=== PATIENT | male | born 1995 | race Caucasian/White ===

== ENCOUNTER 2024-01-12 10:20 | Emergency (ER) | payer OTHER, SELFPAY ==
[2024-01-12 10:22] VITALS: BP 147/82
[2024-01-12 11:26] VITALS: BMI 23.6
[2024-01-12 11:31] LABS: % Basophils 0.2 % (0-2); % Eosinophils 0.4 % (0-6); % Immature Granulocytes 0.4 % (0-0.5); % Lymphocytes 20.1 % (20.5-51.1); % Monocytes 8.1 % (1.7-9.3); % Neutrophils 70.8 % (42.2-75.2); Absolute Lymphocytes 1.7 10^3/uL (1.2-3.4); Absolute Monocytes 0.7 10^3/uL (0.1-0.6); Hematocrit 44.1 % (39.0-52.0); Hemoglobin 16.2 g/dL (13.0-18.0); Mean Corp Hgb Conc. 36.7 g/dL (33.0-37.0); Mean Corpuscular Hgb 33.1 pg (27.0-31.0); Mean Platelet Volume 9.6 fL (7.4-10.4); Nucleated Red Blood Cells % 0 % (-); Platelet Count 177 10^3/uL (130-400); Red Cell Dist. Width 11.9 % (11.5-14.5); White Blood Cell Count 8.4 10^3/uL (4.8-10.8)
[2024-01-12] MEDS: BENADRYL 50 MG IV (11:34)
[2024-01-12] MEDS: SOLU-MEDROL PF 125 MG IV (11:35)
[2024-01-12 11:47] LABS: ALT (SGPT) 27 U/L (0-50); AST (SGOT) 24 U/L (17-59); Albumin 4.7 g/dl (3.5-5.0); Alkaline Phosphatase 47 U/L (38-126); Blood Urea Nitrogen 13 mg/dl (9-20); Calcium 9.5 mg/dl (8.4-10.2); Carbon Dioxide 26 mmol/L (22-30); Chloride 103 mmol/L (98-107); Estimated Creatinine Clearance 123 ml/min; Glucose 92 mg/dl (70-99); Potassium 4.5 mmol/L (3.5-5.1); Sodium 140 mmol/L (135-145); Total Bilirubin 0.8 mg/dl (0.2-1.3); Total Protein 7.2 g/dl (6.3-8.2); eGFR > 60.00
--- NOTE | 2024-01-12 11:55 | ED.GENMED ---
History of Present Illness
General
Chief Complaint: Skin Problem
Source: patient
Exam Limitations: none
Time Seen by Provider: 01/12/24 11:01
Nursing documentation reviewed up to this point in time: agreed with
History of Present Illness
History of Present Illness:
28 y/o M
no previous PMH
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
about a month later was in [place] working set up a new distribution center and got hives on his arms, legs, neck
he went to an ER and got iv benadryl and steorids and was sent home with af ew days of prendisone and epi pen
pt says symptoms resolved but then over the past few weeks here and there he has had occasional hives come and go
the past 48 horus he has had giant hives on R thigh first, then forearm/hand, neck,
he has not tried anything other than daily yusuf which he has been taking
he has not had any trouble breathing, pain, fever, osre throat, voice change, wheezing
went to an business solution analyst today and was sent over for treatment and blood work
Past History
Past History
ED Past Medical History: None
ED Past Surgical History: None
Social History
Tobacco: Non-smoker
Alcohol: None
Drug: None
Personal: Single
Living: with family
Employment: Employed
Review of Systems
Review of Systems
Allergies reviewed?: Yes
All Other Systems: Not applicable
Phy Exam
Physical Exam
Physical Exam:
GENERAL: Alert , in no apparent distress
EYE: pupils equal and reactive
NECK: Supple
ENT: o/p clr, mmm.
CARDIAC: Regular rate and rhythm .
LUNGS: Clear breath sounds bilaterally, no acute respiratory distress, no wheezes/rales/rhonchi
ABDOMEN: Soft, without focal tenderness, no r/g, no cvat, normal bowel sounds
NEUROLOGICAL: Alert and oriented, no focal neuro deficits
SKIN: Warm and dry, intact skin
large areas of urticaria
MUSCULOSKELETAL: No edema, well perfused. neg ester's sign
PSYCH: Normal and appropriate interaction.
Course
Orders/Labs/Results
Orders:
Orders
01/12/24 11:16
CBC/With Diff [Complete Blood Count/With Diff] Urgent
CMP [Comprehensive Metabolic Panel] Urgent
Complement Act., Total (CH50) [S] Urgent
Complement C3 Urgent
Complement C4 Urgent
ESR [Erythrocyte Sed Rate] Urgent
Monotest Urgent
Comment: ADD ON
TSH Urgent
01/12/24 11:27
Diphenhydramine [Benadryl] 50 mg IV NOW STA
MethylPREDNISolone PF [Solu-Medrol Pf] 125 mg IV NOW STA
01/12/24 11:47
Add On- LAB Urgent
Tests Added?: mono
01/12/24 11:55
ANCA(Mpo/Pr3) [ANCA - MPO/PR3 Ab Profile] [S] Routine
IgE [S] Routine
Abnormal Lab Results
01/12/24
11:16
MCH 33.1 H pg
(27.0-31.0)
Absolute Monos (auto) 0.7 H 10^3/uL
(0.1-0.6)
Lymphocytes % 20.1 L %
(20.5-51.1)
01/12/24 11:16
01/12/24 11:16
Vital Signs
Initial and Last Documented VS:
Initial Vital Signs
Temp Pulse Resp BP Pulse Ox
97.7 F 80 18 147/82 97
01/12/24 10:22 01/12/24 10:22 01/12/24 10:22 01/12/24 10:22 01/12/24 10:22
Last Documented Vital Signs
Temp Pulse Resp BP Pulse Ox
98.1 F 72 15 126/72 100
01/12/24 12:39 01/12/24 12:39 01/12/24 12:39 01/12/24 12:39 01/12/24 12:39
MDM/Problems Addressed
Differential Diagnosis Includes:
urticaria, allergic reaction, edema; less likely infectious/
ED Attending Note
-
Portions of this chart may have been created with voice recognition software.� Occasional wrong word or��sound alike� substitutions may have occurred due to the inherent limitations of voice recognition software.
Discharge Plan
Departure
Patient Disposition: Home (Routine Discharge)
Date of Disposition: 01/12/24
Time of Disposition: 12:31
Patient with high blood pressure during this ER visit?: No
Condition: Fair
Discharge Problem:
Urticaria
Instructions: Hives
Prescriptions:
New
prednisone 10 mg Tablet
See Rx Instructions .ROUTE .COMPLEX Qty: 30 0RF
Rx Instructions:
Take By Mouth:
40 mg daily x3 days, 30 mg daily x3 days,
20 mg daily x3 days, 10 mg daily x3 days.
Referrals:
Sanjay Stein MD [Family Provider] -
Activity Restrictions/Additional Instructions:
WE ARE NOT SURE THE CAUSE OF YOUR HIVES
YOU WILL NEED TO CONTINUE THE WORK UP WITH YOUR CONSUMER MARKETING MANAGER
IN THE MEANTIME, I BELIEVE WE WERE ABLE TO SEND THE PANEL OF TESTING THAT WAS REQUESTED
YOU MAY NEED TO HAVE THE IgE and the serum ANCA testing BUT WAIT A FEW DAYS FOR THESE TO RESULT AND GET THEM TO YOUR CONSUMER MARKETING MANAGER
THEY WILL NOT BE AUTOMATICALLY FAXED
IN THE MEANTIME BENADRYL 50 MG EVERY 8 HOURS FOR 3-4 DAYS
PRENDISONE TAPER PRESCRIBED STARTING TOMORROW
IF YOU FEEL RAPIDLY WORSE, RETURN TO THE ER OR USE YOUR EPI PEN AND CALL 911
RETURN FOR TROUBLE BREATHING, THROAT SWELLING, TROUBLE SWALLOWING OR ANY CONCENRS.
Interventions
Interventions:
*Risk Screen - Suicide Last Done: 01/12/24 10:22
*General Assessment Last Done: 01/12/24 10:22
*Neglect/Abuse Screening Last Done: 01/12/24 10:22
*Nursing Disposition Last Done: 01/12/24 13:03
ED-Skin Assessment Last Done: 01/12/24 11:26
Discharge Date and Time
Discharge Date/Time: 01/12/24 13:04
Print Language: TAMAZIGHT
[2024-01-12 12:13] LABS: Monotest Negative (Negative)
[2024-01-12 12:18] LABS: TSH 1.75 uIU/ml (0.47-4.68)
[2024-01-12 12:39] VITALS: BP 126/72
[2024-01-12 12:40] LABS: Erythrocyte Sed Rate 8 mm/hour (0-20)
[2024-01-13 21:18] LABS: IgE 194 kU/L (<=214)
[2024-01-13 22:55] LABS: Complement Act., Total (CH50) 83.2 U/mL (38.7-89.9)
[2024-01-14 17:08] LABS: Myeloperoxidase Antibody 0 AU/mL (0-19); Serine Protease-3, IgG 0 AU/mL (0-19)
[2024-01-14 23:03] LABS: Complement C3 100 mg/dl (88-165)
== END 2024-01-12 13:04 | disposition home or self-care (01) ==
LOC: EMR 10:20
PROVIDERS: Physician Assistant; EMERGENCY PHYSICIAN Emergency Medicine; FAMILY PHYSICIAN Family Medicine
DX: L50.9 Urticaria, unspecified (principal)
CPT/HCPCS: 99284; 96374; 96375; 80053; 82785; 83516; 84443; 85025; 85652; 86160; 86162; 86308

== ENCOUNTER 2024-03-02 19:39 | Emergency (ER) | payer OTHER, SELFPAY ==
[2024-03-02 19:40] VITALS: BP 138/80
--- NOTE | 2024-03-02 22:06 | ED.GENMED ---
History of Present Illness
General
Chief Complaint: Allergic Reaction
Source: patient
Exam Limitations: none
Time Seen by Provider: 03/02/24 20:57
Nursing documentation reviewed up to this point in time: agreed with
History of Present Illness
History of Present Illness:
Patient presents to ED secondary to worsening itchy hives starting last night. Since then, hives have expanded and has progressed to left eye swelling and redness. Denies fever or chills. Denies headache. Denies blurred vision. Denies
dizziness. Denies sore throat. Denies throat swelling sensation. Denies chest pain or shortness of breath. Denies nausea, vomiting, or diarrhea. Patient states that he unfortunately has had number of similar symptoms since November of this year.
He has been evaluated by automotive product specialist, with whom he has had number of testing done, without identification etiology behind his symptoms. He had been referred to dermatology for skin biopsy, if it were to occur again. Of note, patient states
that he had tooth extraction earlier in the day, and is unsure if that may have triggered his rash.
Past History
Past History
ED Past Medical History: None
ED Past Surgical History: None
Social History
Tobacco: Non-smoker
Alcohol: None
Drug: None
Personal: Single
Living: with family
Employment: Employed
Review of Systems
Review of Systems
Allergies reviewed?: Yes
All Other Systems: ROS reviewed and negative except as documented in HPI and ROS
Constitutional: Reports no symptoms
EENT: Reports no symptoms; Denies sore throat
Respiratory: Reports no symptoms; Denies trouble breathing
Cardiac: Reports no symptoms
ABD/GI: Reports no symptoms; Denies abdominal pain, nausea or vomiting
: Reports no symptoms
Musculoskeletal: Reports no symptoms
Skin: Reports itching and rash
Neurological: Reports no symptoms
Phy Exam
Physical Exam
Physical Exam:
Physical Exam
General: mild distress, not acutely ill. afebrile
Head: nc/at. mild left periorbital swelling/erythema noted. normal conjunctiva.
Neck: supple. normal range of motion. normal pharynx
Heart: s1/s2 regular rate and rhythm, no murmur. equal radial pulses.
Lungs: no acute respiratory distress. clear bilaterally
Abdomen: normal bowel sounds. not tender.
Neuro: alert and oriented. no focal neurological deficits
Skin: no rash
Psychiatric: well kept. interactive and cooperative
Extremities: no edema. no calf tenderness.
Course
Orders/Labs/Results
Orders:
Orders
03/02/24 22:06
HydrOXYZINE [Atarax] 10 mg PO NOW STA
Prednisone [Deltasone] 50 mg PO NOW STA
Vital Signs
Initial and Last Documented VS:
Initial Vital Signs
Temp Pulse Resp BP Pulse Ox
98.2 F 83 19 138/80 98
03/02/24 19:40 03/02/24 19:40 03/02/24 19:40 03/02/24 19:40 03/02/24 19:40
Last Documented Vital Signs
Temp Pulse Resp BP Pulse Ox
98.2 F 83 19 138/80 98
03/02/24 19:40 03/02/24 19:40 03/02/24 19:40 03/02/24 19:40 03/02/24 19:40
MDM/Problems Addressed
MDM/Problems Addressed:
History and exam consistent with likely an unfortunate recurrent nonspecific hives. Symptoms have been ongoing over 24 hours, without any significant respiratory compromise. As such, after much discussion, decision made to discharge home with
tapered dose of prednisone, which she has responded to in the past, along with follow-up with dermatology, for potential skin biopsy. Patient and family expressed understanding at time of discharge.
*Critical Care Note
Total Time (30-74mins, 75-104mins- exclusive of procedures): Not Applicable
ED Attending Note
-
Portions of this chart may have been created with voice recognition software.� Occasional wrong word or��sound alike� substitutions may have occurred due to the inherent limitations of voice recognition software.
Discharge Plan
Departure
Patient Disposition: Home (Routine Discharge)
Date of Disposition: 03/02/24
Time of Disposition: 22:08
Patient with high blood pressure during this ER visit?: Yes
Condition: Good
Discharge Problem:
Urticaria
Instructions: Hives (DC)
Prescriptions:
No Action
prednisone 10 mg Tablet
See Rx Instructions .ROUTE .COMPLEX Qty: 30 0RF
Rx Instructions:
Take By Mouth:
40 mg daily x3 days, 30 mg daily x3 days,
20 mg daily x3 days, 10 mg daily x3 days.
Referrals:
Sanjay Stein MD [Family Provider] -
Activity Restrictions/Additional Instructions:
As discussed, please follow-up with your automotive product specialist and/or spooler for further evaluation and treatment.
Interventions
Interventions:
*Risk Screen - Suicide Last Done: 03/02/24 19:39
*General Assessment Last Done: 03/02/24 19:40
*Neglect/Abuse Screening Last Done: 03/02/24 19:40
ED- Fall Risk Assessment Last Done: 03/02/24 22:20
*ED COVID-19 Vaccine History Last Done: 03/02/24 21:32
*Nursing Disposition Last Done: 03/02/24 22:20
ED- Cardiac Assessment Last Done: 03/02/24 21:30
ED-Skin Assessment Last Done: 03/02/24 21:30
Discharge Date and Time
Discharge Date/Time: 03/02/24 22:21
Print Language: [place]
[2024-03-02] MEDS: DELTASONE 50 MG PO (22:16)
[2024-03-02] MEDS: ATARAX 10 MG PO (22:16)
== END 2024-03-02 22:21 | disposition home or self-care (01) ==
LOC: EMR 19:39
PROVIDERS: EMERGENCY PHYSICIAN Emergency Medicine; FAMILY PHYSICIAN Family Medicine
DX: L50.9 Urticaria, unspecified (principal)
CPT/HCPCS: 99282

== ENCOUNTER 2025-04-06 09:54 | Emergency (ER) | payer OTHER, SELFPAY ==
[2025-04-06 10:01] VITALS: BP 126/89
--- NOTE | 2025-04-06 11:03 | ED.GENMED ---
History of Present Illness
General
Chief Complaint: Allergic Reaction
Source: patient
Exam Limitations: none
Time Seen by Provider: 04/06/25 10:55
Nursing documentation reviewed up to this point in time: agreed with
History of Present Illness
History of Present Illness:
29-year-old male with no reported chronic medical issues presents for evaluation of hives. Patient reports that he had a GI bug that lasted for about 24 hours the day after Eugenie. He had some nausea, vomiting, diarrhea and those symptoms have
resolved. Woke up yesterday with hives on the face, torso, extremities which are pruritic. Was taking Zyrtec and Pepcid but hives not gone away which prompted ER visit today. He denies any abdominal cramping, shortness of breath or wheezing,
cough. Denies any swelling in the tongue or throat. He says he has had this 5 or 6 times in the past with no clear identifiable trigger and it usually clears up with steroids. Denies any new medicines, foods, skin products, etc
Past History
Past History
ED Past Medical History: None
ED Past Surgical History: None
Social History
Tobacco: Non-smoker
Alcohol: None
Drug: None
Personal: Single
Living: with family
Employment: Employed
Review of Systems
Review of Systems
All Other Systems: ROS reviewed and negative except as documented in HPI and ROS
Constitutional: Denies fever or chills
EENT: Denies sore throat
Respiratory: Denies cough or trouble breathing
Cardiac: Denies chest pain
ABD/GI: Denies abdominal pain, vomiting (Resolved) or diarrhea (Resolved)
Musculoskeletal: Denies neck pain or back pain
Skin: Reports itching and rash
Neurological: Denies headache
Phy Exam
Physical Exam
Physical Exam:
General: Awake, alert, oriented x3; no acute distress
Head: Normocephalic, atraumatic
Eyes: Conjunctiva normal, pupils equal round reactive to light bilaterally
Throat: Airway intact, handling secretions, no swelling of the lips or tongue
Neck: Trachea midline, supple without meningismus
Lungs: Clear to auscultation bilaterally, no wheezing, rales, rhonchi
Heart: Regular rate and rhythm, no murmurs, gallops, or rubs
Abd: Soft, non distended, nontender
Neuro: Grossly intact
Skin: Scattered hives on the face, torso, extremities
Extremities: Warm and well-perfused
Scores
Heart Failure Risk
Heart Failure Risk Score: Not Applicable
Heart Score for Chest Pain Patients
STEMI patient?: Not applicable
Withdrawal Assessment of Alcohol
Withdrawal Assessment Completed?: Not applicable
Course
Orders/Labs/Results
Orders:
Orders
04/06/25 11:01
Prednisone [Deltasone] 50 mg PO NOW STA
Vital Signs
Initial and Last Documented VS:
Initial Vital Signs
Temp Pulse Resp BP Pulse Ox
36.9 C 96 16 126/89 100
04/06/25 10:01 04/06/25 10:01 04/06/25 10:01 04/06/25 10:01 04/06/25 10:01
Last Documented Vital Signs
Temp Pulse Resp BP Pulse Ox
36.9 C 96 16 126/89 100
04/06/25 10:01 04/06/25 10:01 04/06/25 10:01 04/06/25 10:01 04/06/25 10:01
MDM/Problems Addressed
Differential Diagnosis Includes:
Urticaria�viral versus allergic versus autoimmune
MDM/Problems Addressed:
29-year-old male presents with urticaria after transient GI illness. Could be viral induced although he has had this in the past without preceding viral illness. Nothing to suggest anaphylaxis. Will treat with steroids. Stable for discharge.
*Pulse Oximetry
SaO2: 100
Oxygen Mode of Delivery: Room air
Patient hypoxic: no (100%)
*Critical Care Note
Total Time (30-74mins, 75-104mins- exclusive of procedures): Not Applicable
Data Reviewed
Source: patient
ED Attending Note
-
Portions of this chart may have been created with voice recognition software.� Occasional wrong word or��sound alike� substitutions may have occurred due to the inherent limitations of voice recognition software.
Discharge Plan
Departure
Patient Disposition: Home (Routine Discharge)
Date of Disposition: 04/06/25
Time of Disposition: 11:01
Patient with high blood pressure during this ER visit?: No
Discharge Problem:
Urticaria
Instructions: Mike (DC)
Prescriptions:
New
prednisone 10 mg Tablet
See Rx Instructions .ROUTE .COMPLEX Qty: 30 0RF
Rx Instructions:
Take By Mouth:
40 mg daily x3 days, 30 mg daily x3 days,
20 mg daily x3 days, 10 mg daily x3 days.
No Action
prednisone 10 mg Tablet
See Rx Instructions .ROUTE .COMPLEX Qty: 30 0RF
Rx Instructions:
Take By Mouth:
40 mg daily x3 days, 30 mg daily x3 days,
20 mg daily x3 days, 10 mg daily x3 days.
Activity Restrictions/Additional Instructions:
Thank you for visiting the Emergency Department at [facility].
1. Please schedule a follow up appointment as directed. Call first thing tomorrow morning to make an appointment.
2. If indicated, please take your medications as instructed and indicated on discharge paperwork.
3. If any of your symptoms do not improve, or persist, or become more severe within 6-12 hours, please return to the emergency department for further care.
4. Please return to the emergency department if you develop a headache, neck pain/stiffness, fever greater than 100.4F, chest pain, shortness of breath, persistent nausea, vomiting, slurred speech, difficulty walking, numbness/tingling, weakness,
signs of infection or any other symptoms that are worrisome to you.
Please call [phone] if you have any questions.
Interventions
Interventions:
*General Assessment Last Done: 04/06/25 10:01
*Neglect/Abuse Screening Last Done: 04/06/25 10:01
*Risk Screen - Suicide (C-SSRS) Last Done: 04/06/25 10:01
Discharge Date and Time
Print Language: [place]
[2025-04-06] MEDS: SOLU-MEDROL PF 125 MG IV (11:15)
[2025-04-06] MEDS: BENADRYL 25 MG IV (11:17)
== END 2025-04-06 11:25 | disposition home or self-care (01) ==
LOC: EMR 09:54
PROVIDERS: EMERGENCY PHYSICIAN Emergency Medicine; FAMILY PHYSICIAN Family Medicine
DX: L50.9 Urticaria, unspecified (principal)
CPT/HCPCS: 99284; 96374; 96375